=== PATIENT | female | born 1950 | race Caucasian/White ===

== ENCOUNTER 2020-12-02 05:56 | Inpatient (IN) ==
[2020-12-02] MEDS ORDERED: VANCOMYCIN INJ 1,000 MG in SODIUM CHLORIDE 0.9% 250 ML IV ONE (06:00)
[2020-12-02] MEDS ORDERED: MIDAZOLAM 2 MG/2 ML VIAL ONE ×2 (08:32→08:36)
[2020-12-02] MEDS ORDERED: fentaNYL 100 MCG/2 ML VIAL ONE ×2 (08:32→08:36)
[2020-12-02] MEDS ORDERED: DEXAMETHASONE 4 MG/1 ML VIAL ONE ×3 (08:36→10:14)
[2020-12-02] MEDS ORDERED: LIDOCAINE 2% 5 ML VIAL ONE ×2 (08:36→09:45)
[2020-12-02] MEDS ORDERED: ROPIVACAINE 0.5% 30 ML VIAL ONE (08:37)
[2020-12-02] MEDS ORDERED: ceFAZolin 1,000 MG VIAL ONE (09:16)
[2020-12-02] MEDS ORDERED: ROCURONIUM 50 MG/5 ML VIAL IV ONE (09:45)
[2020-12-02] MEDS ORDERED: propofoL 200 MG/20 ML VIAL IV ONE (09:45)
[2020-12-02] MEDS ORDERED: LACTULOSE 20 GM/30 ML UDCUP PO PRN (10:07)
[2020-12-02] MEDS ORDERED: BISACODYL 10 MG SUPP RECTAL PRN (10:07)
[2020-12-02] MEDS ORDERED: diphenhydrAMINE CAP 25 MG CAPSULE PO PRN (10:07)
[2020-12-02] MEDS ORDERED: MAGNESIUM HYDROXIDE SUSP 30 ML UDCUP PO PRN (10:07)
[2020-12-02] MEDS ORDERED: TEMAZEPAM 7.5 MG CAPSULE PO PRN (10:07)
[2020-12-02] MEDS ORDERED: PROMETHAZINE 25 MG/1 ML VIAL IM PRN (10:07)
[2020-12-02] MEDS ORDERED: ONDANSETRON 4 MG/2 ML VIAL IV PRN ×2 (10:07→11:49)
[2020-12-02] MEDS ORDERED: TRANEXAMIC ACID 1,000 MG/10 ML VIAL ONE (10:07)
[2020-12-02] MEDS ORDERED: METHOCARBAMOL 500 MG TABLET PO PRN (10:10)
[2020-12-02] MEDS ORDERED: SODIUM CHLORIDE 0.9% 100 ML IV ONE (10:14)
[2020-12-02] MEDS ORDERED: ACETAMINOPHEN INJ 1,000 MG/100 ML VIAL IV ONE (10:14)
[2020-12-02] MEDS ORDERED: SEVOFLURANE 1 UNIT/15 MINUTE INH ONE ×2 (10:14→11:19)
[2020-12-02] MEDS ORDERED: LACTATED RINGERS 1,000 ML IV ONE (10:14)
[2020-12-02] MEDS ORDERED: ONDANSETRON 4 MG/2 ML VIAL ONE (10:14)
[2020-12-02] MEDS ORDERED: MORPHINE 2 MG/1 ML SYRINGE IV PRN (10:15)
[2020-12-02] MEDS ORDERED: NEOSTIGMINE 10 MG/10 ML VIAL ONE (10:50)
[2020-12-02] MEDS ORDERED: GLYCOPYRROLATE 0.4 MG/2 ML VIAL ONE (10:50)
[2020-12-02] MEDS ORDERED: PHENYLEPHRINE 1 MG/10 ML SYRINGE IV ONE (11:07)
[2020-12-02] MEDS ORDERED: HYDROmorphone 2 MG/1 ML VIAL ONE (11:46)
[2020-12-02] MEDS: HYDROmorphone 2 MG/1 ML VIAL IV PRN ×4 (11:46→12:08)
[2020-12-02 11:53] LABS: Bilirubin,Urine Negative (Negative); Blood, Urine Negative (Negative); Glucose,Urine (UA) Negative (Negative); Ketones,Urine Negative (Negative); Nitrite,Urine Negative (Negative); Protein,Urine Negative; RBC,Urine 1 /HPF (0-4); Urine Appearance CLEAR (Clear); Urine Color Colorless (Yellow); Urine Specific Gravity 1.005 (1.001-1.035); Urine Urobilinogen < 2.0 EU/DL (0.2-1.0)
[2020-12-02] MEDS ORDERED: MEPERIDINE 25 MG/1 ML VIAL IV ONE ×2 (12:30→13:42)
[2020-12-02] MEDS: LACTATED RINGERS 1,000 ML IV SCH (15:05)
[2020-12-02] MEDS: DOCUSATE SODIUM 100 MG CAPSULE PO SCH (21:08)
[2020-12-02] MEDS: MEMANTINE 10 MG TABLET PO SCH (21:08)
[2020-12-02] MEDS: APIXABAN 5 MG TABLET PO SCH (21:08)
[2020-12-02] MEDS: POTASSIUM CHLORIDE 20 MEQ TABLET PO SCH (21:08)
[2020-12-02] MEDS: DONEPEZIL 5 MG TABLET PO SCH (21:08)
[2020-12-02] MEDS: ROSUVASTATIN 10 MG TABLET PO SCH (21:09)
[2020-12-02] MEDS: DILTIAZEM CD 120 MG CAPSULE PO SCH (21:10)
[2020-12-02] MEDS: SOLIFENACIN 5 MG TABLET PO SCH (21:14)
[2020-12-02] MEDS: METHENAMINE HIPPURATE 1 GM TABLET PO SCH (21:14)
[2020-12-02] MEDS: MORPHINE 2 MG/1 ML SYRINGE IV PRN (23:15)
[2020-12-03] MEDS: MORPHINE 2 MG/1 ML SYRINGE IV PRN ×3 (05:43→20:55)
[2020-12-03 06:03] LABS: Hematocrit 27.9 VOL% (35.7-47.0); Immature Granulocytes % 0.4 %; Immature Granulocytes Absolute 0.04 #; Lymphocytes % 10.3 % (21.3-54.2); Mean Corpuscular HGB Conc 32.3 GM/DL (32-36); Mean Corpuscular Volume 93.9 FL (87-102); Mean Platelet Volume 9.3 FL (9.6-12.0); Monocytes % 4.2 % (1.7-12.7); Neutrophils % 85.1 % (38.7-73.9); Platelet Count 161 T/CUMM (130-400); Red Blood Count 2.97 MC/CUMM (3.8-5.5); White Blood Count 9.7 T/CUMM (4-12)
[2020-12-03 06:21] LABS: Calcium 8.9 MG/DL (8.5-10.1); Osmolality,Calculated 273.1 MOS/KG (273-304); Potassium 5.6 MMOL/L (3.5-5.1)
[2020-12-03] MEDS: LACTATED RINGERS 1,000 ML IV SCH (07:45)
[2020-12-03] MEDS: NEBIVOLOL 10 MG TABLET PO SCH (08:03)
[2020-12-03] MEDS: ZINC GLUCONATE 50 MG TABLET PO SCH (08:03)
[2020-12-03] MEDS: PANTOPRAZOLE 40 MG TABLET PO SCH (08:04)
[2020-12-03] MEDS: APIXABAN 5 MG TABLET PO SCH ×2 (08:04→20:54)
[2020-12-03] MEDS: DOCUSATE SODIUM 100 MG CAPSULE PO SCH ×2 (08:04→20:54)
[2020-12-03] MEDS: METHENAMINE HIPPURATE 1 GM TABLET PO SCH ×2 (08:04→20:54)
[2020-12-03] MEDS: DILTIAZEM CD 120 MG CAPSULE PO SCH ×2 (08:04→20:54)
[2020-12-03] MEDS: MEMANTINE 10 MG TABLET PO SCH ×2 (08:04→20:54)
[2020-12-03] MEDS: POTASSIUM CHLORIDE 20 MEQ TABLET PO SCH ×2 (08:04→20:54)
[2020-12-03] MEDS: ROSUVASTATIN 10 MG TABLET PO SCH (20:54)
[2020-12-03] MEDS: DONEPEZIL 5 MG TABLET PO SCH (20:54)
[2020-12-03] MEDS: SOLIFENACIN 5 MG TABLET PO SCH (21:14)
[2020-12-04] MEDS: LACTATED RINGERS 1,000 ML IV SCH (05:26)
[2020-12-04 05:38] LABS: Basophils % 0.1 % (0.0-0.8); Eosinophils % 0.1 % (0.00-10.9); Hematocrit 24.6 VOL% (35.7-47.0); Hemoglobin 8.1 GM/DL (12.0-16.0); Immature Granulocytes % 0.4 %; Immature Granulocytes Absolute 0.04 #; Lymphocytes # 1.4 10*3/uL (1.4-4.0); Lymphocytes % 14.3 % (21.3-54.2); Mean Corpuscular HGB Conc 32.9 GM/DL (32-36); Mean Corpuscular Volume 92.5 FL (87-102); Mean Platelet Volume 9.2 FL (9.6-12.0); Neutrophils % 77.1 % (38.7-73.9); Platelet Count 118 T/CUMM (130-400); Red Blood Count 2.66 MC/CUMM (3.8-5.5); Red Cell Distribution Width 13.1 % (9.3-17.3); White Blood Count 9.6 T/CUMM (4-12)
[2020-12-04 07:58] LABS: Alanine Aminotransferase 11 U/L (13-56); Albumin 2.9 G/DL (3.4-5.0); Alkaline Phosphatase 67 U/L (45-117); Aspartate Amino Transferase 19 U/L (0-37); Bilirubin,Total < 0.39 MG/DL (0.20-1.00); Blood Urea Nitrogen 15 MG/DL (7-18); Calcium 8.5 MG/DL (8.5-10.1); Carbon Dioxide 30 MMOL/L (21-32); Estimated Glom Filtration Rate 96 ML/MIN; Glucose 97 MG/DL (74-106); Osmolality,Calculated 270.1 MOS/KG (273-304); Potassium 4.5 MMOL/L (3.5-5.1); Sodium 135 MMOL/L (136-145); Total Protein 5.4 G/DL (6.4-8.2)
[2020-12-04] MEDS: PANTOPRAZOLE 40 MG TABLET PO SCH (08:12)
[2020-12-04] MEDS: ZINC GLUCONATE 50 MG TABLET PO SCH (08:12)
[2020-12-04] MEDS: MEMANTINE 10 MG TABLET PO SCH (08:12)
[2020-12-04] MEDS: METHENAMINE HIPPURATE 1 GM TABLET PO SCH (08:12)
[2020-12-04] MEDS: DOCUSATE SODIUM 100 MG CAPSULE PO SCH (08:12)
[2020-12-04] MEDS: NEBIVOLOL 10 MG TABLET PO SCH (08:12)
[2020-12-04] MEDS: DILTIAZEM CD 120 MG CAPSULE PO SCH (08:12)
[2020-12-04] MEDS: APIXABAN 5 MG TABLET PO SCH (08:12)
[2020-12-04 11:18] VITALS: BP 106/50
== END 2020-12-04 14:45 | disposition swing bed (61) | DRG 470 ==
LOC: N.OR 05:56 → N.SDSINP 05:59 → EDSTATUS 15:45 → N.3E 16:53
PROVIDERS: ADMIT Orthopaedic Surgery; ATTEND Orthopaedic Surgery